=== PATIENT | female | born 1965 ===

== ENCOUNTER 2017-04-26 19:14 | Emergency (ER) | payer SELFPAY ==
[2017-04-26 19:26] VITALS: BP 124/78; PULSE 86; RESP 17; TEMP 98.4; O2SAT 100
[2017-04-26 20:13] LABS: HEMATOCRIT 38.4 % (34.0-47.0); MEAN CELL VOLUME 87.6 fl (81.0-99.0); MEAN CORPUSCULAR HEMOGLOBIN 28.7 pg (27.0-31.0); MEAN CORPUSCULAR HGB CONC 32.8 g/dL (33.0-37.0); RED CELL DISTRIBUTION WIDTH 13.8 % (11.5-14.5); WHITE BLOOD COUNT 6.2 K/uL (4.8-10.8)
[2017-04-26 20:31] LABS: PARTIAL THROMBOPLASTIN TIME 32.1 Seconds (25.6-37.1)
[2017-04-26 20:35] LABS: ALB/GLOB RATIO 1.5 (1.0-2.1); ALKALINE PHOSPHATASE 94 U/L (38-126); ALT/SGPT 42 U/L (9-52); AST/SGOT 31 U/L (14-36); BILIRUBIN,TOTAL 0.3 mg/dl (0.2-1.3); BLOOD UREA NITROGEN 16 mg/dl (7-17); CALCIUM 9.7 mg/dL (8.4-10.2); CARBON DIOXIDE 26 mmol/L (22-30); CHLORIDE 105 mmol/L (98-107); GFR AFRICAN-AMERICAN > 60; GLUCOSE,RANDOM 100 mg/dL (65-105); POTASSIUM 3.9 MMOL/L (3.6-5.0); SODIUM 141 mmol/l (132-148)
--- NOTE | 2017-04-26 21:15 | CT ---
EXAM: CT Head Without Intravenous Contrast CLINICAL HISTORY: 51 years old, female; Pain; Headache; Headache not specified TECHNIQUE: Axial computed tomography images of the head/brain without intravenous contrast. This CT exam was performed using one or more of the following dose reduction techniques: automated exposure control, adjustment of the mA and/or kV according to patient size, and/or use of iterative reconstruction technique. Coronal and sagittal reformatted images were created and reviewed. COMPARISON: No relevant prior studies available. FINDINGS: Brain: No intracranial hemorrhage. No mass. No definite edema. Ventricles: No hydrocephalus. Bones/joints: No acute fracture. Soft tissues: Unremarkable. Sinuses: Probable RIGHT maxillary retention cyst, incompletely imaged. Mastoid air cells: No mastoid effusion. Orbits: Unremarkable as visualized. IMPRESSION: 1. No acute intracranial abnormality. 2. Incidental/non-acute findings are described above.
[2017-04-26] MEDS ORDERED: Sodium Chloride 0.9% 1,000 ML IV STA (21:27)
[2017-04-26] MEDS ORDERED: DiphenhydrAMINE 50 mg/ml Inj IVP STA (21:27)
[2017-04-26] MEDS ORDERED: DiphenhydrAMINE 50 mg/ml Inj ONE (21:33)
--- NOTE | 2017-04-26 21:58 | ED PDOC ---
HPI: Headache Time Seen by Provider: 04/26/17 19:27 Chief Complaint (Nursing): Headache Chief Complaint (Provider): Headache x 2 weeks, left sided History Per: Patient History/Exam Limitations: no limitations Onset/Duration Of Symptoms: Days (x14) Additional Complaint(s): Regi Almaraz, 51 year old female presents to the ED on 04/26/17 with a headache occurring for 2 weeks prior to arrival. The patient states she saw her PMD and was referred to a neurologist but didn't have time to follow up which prompted her to visit the Emergency Room today. In addition, the patient experienced left sided chest pain radiating down her left arm last night. She states that she feels better today. The patient has taken Tylenol with no relief. She denies smoking or drinking. Of note, the patient has a past medical history inclusive of high cholesterol but does not take medication for this. Past Medical History Reviewed: Historical Data, Nursing Documentation, Vital Signs Vital Signs: Last Vital Signs Temp 98.4 F 04/26/17 19:23 Pulse 86 04/26/17 19:23 Resp 17 04/26/17 19:23 BP 124/78 04/26/17 19:23 Pulse Ox 100 04/26/17 19:23 - Medical History PMH: Hyperlipidemia - Surgical History Surgical History: Cholecystectomy - Family History Family History: States: Unknown Family Hx - Immunization History Hx Tetanus Toxoid Vaccination: No Hx Influenza Vaccination: No Hx Pneumococcal Vaccination: No - Home Medications Home Medications: Ambulatory Orders Medication Instructions Recorded Naproxen [Naprosyn] 375 mg PO TIDPC #20 tab 02/12/14 Aspirin/Acetaminophen/Caffeine 2 each PO Q8H #20 tablet 04/26/17 [Excedrin Migraine Caplet] - Allergies Allergies/Adverse Reactions: Allergies Allergy/AdvReac Type Severity Reaction Status Date / Time No Known Allergies Allergy Unverified 04/26/17 19:23 Review of Systems ROS Statement: Except As Marked, All Systems Reviewed And Found Negative Cardiovascular: Positive for: Chest Pain (left sided ) Musculoskeletal: Positive for: Arm Pain (chest pain radiating down left arm ) Neurological: Positive for: Headache Physical Exam - Reviewed Nursing Documentation Reviewed: Yes Vital Signs Reviewed: Yes - Physical Exam Appears: Positive for: Non-toxic, No Acute Distress Head Exam: Positive for: ATRAUMATIC, NORMOCEPHALIC Skin: Positive for: Normal Color, Warm, DRY Eye Exam: Positive for: EOMI, Normal appearance, PERRL ENT: Positive for: Normal ENT Inspection Neck: Positive for: Normal, Painless ROM Cardiovascular/Chest: Positive for: Regular Rate, Rhythm, Chest Non Tender Respiratory: Positive for: Normal Breath Sounds. Negative for: Accessory Muscle Use, Respiratory Distress Gastrointestinal/Abdominal: Positive for: Normal Exam, Bowel Sounds, Soft Back: Positive for: Normal Inspection Extremity: Positive for: Normal ROM Neurologic/Psych: Positive for: Alert, board filler II-XII, Oriented (x3), Mood/Affect, Cerebellar Tests, Gait. Negative for: Motor/Sensory Deficits, Aphasia, Facial Droop - Laboratory Results Result Diagrams: 04/26/17 20:00 04/26/17 20:00 - ECG O2 Sat by Pulse Oximetry: 100 (RA) Pulse Ox Interpretation: Normal Medical Decision Making Medical Decision Making: Initial Impression: Headache Initial Plan: * CT Head W/O Contrast Stat * COMP Metabolic Panel Stat * Troponin I Stat * CBC Stat * PTT COAG Stat * Prothrombin Time [COAG] Stat * Benadryl 25 mg IVP Once Stat * Sodium Chloride 0.9% 1,000 ml IV 1,000 mls/hr * Reglan 10 mg IV Once Stat * Toradol 15 mg IVP Stat * Reevaluation Labs all normal Head CT normal. Scribe Attestation: Documented by Shahrzad Rebolledo, acting as a scribe for Marizol Cox PA-C. Provider Scribe Attestation: All medical record entries made by the Scribe were at my direction and personally dictated by me. I have reviewed the chart and agree that the record accurately reflects my personal performance of the history, physical exam, medical decision making, and the department course for this patient. I have also personally directed, reviewed, and agree with the discharge instructions and disposition. Disposition - Clinical Impression Clinical Impression: Migraine - Patient ED Disposition Is Patient to be Admitted: No Counseled Patient/Family Regarding: Diagnosis, Need For Followup, Rx Given - Disposition Referrals: [facility] [place] [Outside] Disposition: Routine/Home Disposition Time: 22:34 Condition: GOOD Prescriptions: Aspirin/Acetaminophen/Caffeine [Excedrin Migraine Caplet] 2 each PO Q8H #20 tablet Instructions: Migraine Headache (ED)
== END 2017-04-26 22:40 | disposition home or self-care (01) ==
LOC: H.ER 19:14
DX: G43.909 Migraine, unspecified, not intractable, without status migrainosus (principal); E78.5 Hyperlipidemia, unspecified; Z79.82 Long term (current) use of aspirin
CPT/HCPCS: 70450; 80053; 84484; 85027; 85610; 85730; 96361; 96374; 96375; 99282; J1200; J1885; J2765; J7040